=== PATIENT | male | born 1975 | race Caucasian/White ===

== ENCOUNTER 2018-06-27 13:09 | Emergency (ER) | payer OTHER ==
[~2018-06-27] VITALS: Ht 180.3 cm; Wt 90.0 kg
[~2018-06-27 13:09] MED LIST: DIVA500T69 PO; GABA400C PO; QUET200T PO
[2018-06-27] MEDS ORDERED: MIRT15 PO (14:47)
[2018-06-27] MEDS ORDERED: HALO5TAB2 PO (14:47)
[2018-06-27 16:14] LABS: BASOPHILS % (AUTO) 0.3 % (0.0-2.0); EOSINOPHILS % (AUTO) 1.2 % (1.0-6.0); HEMATOCRIT 36.1 % (41-53); HEMOGLOBIN 12.1 g/dL (13.5-17.5); LYMPHOCYTES # (AUTO) 1.7 K/uL (1.0-4.8); LYMPHOCYTES % (AUTO) 19.4 % (22.0-44.0); MEAN CORPUSCULAR HEMOGLOBIN 31.3 pg (26.0-34.0); MEAN CORPUSCULAR HGB CONC 33.4 G/dL (31.0-37.0); MEAN CORPUSCULAR VOLUME 94 fL (80-100); MONOCYTES # (AUTO) 0.8 K/uL (0.1-1.0); MONOCYTES % (AUTO) 9.2 % (2.0-9.0); NEUTROPHILS # (AUTO) 6.1 K/uL (1.8-7.7); NEUTROPHILS % (AUTO) 69.9 % (40.0-70.0); PLATELET COUNT (AUTO) 231 K/uL (150-450); RED BLOOD CELL COUNT(AUTO) 3.85 MIL/uL (4.50-5.90)
[2018-06-27 16:23] LABS: ANION GAP 4 mmol/L (8-16); CALCIUM, TOTAL 8.5 mg/dL (8.8-10.5); CARBON DIOXIDE 29 mmol/L (22-29); CHLORIDE 108 mmol/L (98-107); CREATININE 0.75 mg/dL (0.60-1.30); GLOMERULAR FILTR. RATE CALC > 60 mL/min (>60); GLUCOSE,RANDOM 97 mg/dL (70-110); POTASSIUM 3.9 mmol/L (3.5-5.1); SODIUM SERUM 141 mmol/L (136-145); UREA NITROGEN, BLOOD 8 mg/dL (7-18)
[2018-06-27 16:29] LABS: ALANINE AMINOTRANSFERASE 19 U/L (12-78); ALBUMIN 3.1 g/dL (3.4-5.0); ALKALINE PHOSPHATASE 74 U/L (46-116); ASPARTATE AMINOTRANSFERASE 15 U/L (15-37); BILIRUBIN,TOTAL 0.3 mg/dL (0.1-1.0); TOTAL PROTEIN, SERUM 6.2 g/dL (6.4-8.2)
[2018-06-27 17:10] VITALS: BP 121/71
== END 2018-06-27 17:11 | disposition home or self-care (01) ==
LOC: EMS 13:10
DX: R45.851 Suicidal ideations (principal); F31.9 Bipolar disorder, unspecified; I10 Essential (primary) hypertension; F17.210 Nicotine dependence, cigarettes, uncomplicated; Z88.8 Allergy status to other drugs, medicaments and biological substances; Z59.0 Homelessness
CPT/HCPCS: 36415; 80053; 85025; 99285; G0480

== ENCOUNTER 2018-10-11 13:28 | Inpatient (IN) | payer OTHER, MEDICAID ==
[~2018-10-11] VITALS: Ht 175.3 cm; Wt 91.8 kg
[~2018-10-11 13:28] MED LIST changes: +HALO5TAB2 PO; +MIRT15 PO
[2018-10-11] MEDS ORDERED: CLON2 PO (13:52)
[2018-10-11] MEDS ORDERED: TRAZ-220 PO (13:52)
[2018-10-11] MEDS ORDERED: LORazepam 2 MG TABLET PO ONE (14:00)
[2018-10-11] MEDS ORDERED: HALOPERIDOL 5 MG TABLET PO ONE (14:00)
[2018-10-11] MEDS ORDERED: DiphenhydrAMINE HCL 50 MG/ML VIAL ONE (14:03)
[2018-10-11] MEDS ORDERED: LORazepam 2 MG/ML VIAL ONE (14:03)
[2018-10-11] MEDS ORDERED: HALOPERIDOL LACTATE 5 MG/ML VIAL ONE (14:04)
[2018-10-11] MEDS ORDERED: DiphenhydrAMINE HCL 50 MG/ML VIAL IM ONE (14:05)
[2018-10-11] MEDS ORDERED: LORazepam 2 MG/ML VIAL IM ONE (14:05)
[2018-10-11] MEDS ORDERED: HALOPERIDOL LACTATE 5 MG/ML VIAL IM ONE (14:05)
[2018-10-12] MEDS ORDERED: ZOLPIDEM TARTRATE 10 MG TABLET PO PRN (00:45)
[2018-10-12 06:09] LABS: AMPHET/METH SCREEN,URINE NEGATIVE (NEGATIVE); BARBITURATE SCREEN, URINE NEGATIVE (NEGATIVE); BENZODIAZEPINES SCREEN,URINE NEGATIVE (NEGATIVE); CANNABINOID SCREEN,URINE POSITIVE (NEGATIVE); COCAINE SCREEN,URINE NEGATIVE (NEGATIVE); METHADONE SCREEN, URINE NEGATIVE (NEGATIVE); OPIATE SCREEN,URINE NEGATIVE (NEGATIVE); PHENCYCLIDINE SCREEN,URINE NEGATIVE (NEGATIVE)
[2018-10-12] MEDS ORDERED: NICOTINE 14 MG/24 HOUR PATCH TD ONE (06:45)
[2018-10-12] MEDS: LORazepam 2 MG TABLET PO PRN (09:51)
[2018-10-12] MEDS: HALOPERIDOL 5 MG TABLET PO PRN (11:46)
[2018-10-12] MEDS: NICOTINE 21 MG/24 HOUR PATCH TD SCH (12:19)
[2018-10-12 12:35] VITALS: BP 150/82
[2018-10-12] MEDS ORDERED: TraZODone HCL 50 MG TABLET PO PRN (14:30)
[2018-10-12] MEDS ORDERED: OMEP20 PO (14:52)
[2018-10-12] MEDS ORDERED: CLON1 PO (14:52)
[2018-10-12] MEDS ORDERED: LISI-660 PO (14:52)
[2018-10-12] MEDS ORDERED: DIPH50 PO (14:52)
[2018-10-12] MEDS ORDERED: QUET200T PO (14:52)
[2018-10-12] MEDS ORDERED: TRAZ-219 PO (15:50)
[2018-10-12] MEDS ORDERED: GABA-531 PO (15:50)
[2018-10-12] MEDS: DIVALPROEX SODIUM 500 MG ER TABLET PO SCH (16:56)
[2018-10-12] MEDS: QUEtiapine FUMARATE 200 MG TABLET PO SCH ×2 (16:56→20:10)
[2018-10-12 17:28] VITALS: BP 145/82
[2018-10-13] MEDS: DIVALPROEX SODIUM 500 MG ER TABLET PO SCH ×2 (08:20→16:17)
[2018-10-13] MEDS: NICOTINE 21 MG/24 HOUR PATCH TD SCH (08:22)
[2018-10-13] MEDS: HALOPERIDOL 5 MG TABLET PO PRN (08:34)
[2018-10-13] MEDS: LORazepam 2 MG TABLET PO PRN (08:34)
[2018-10-13 09:00] VITALS: BP 119/75
[2018-10-13] MEDS: QUEtiapine FUMARATE 200 MG TABLET PO SCH ×2 (16:17→20:20)
[2018-10-13] MEDS ORDERED: DiphenhydrAMINE HCL 50 MG/ML VIAL IM ONE (16:30)
[2018-10-13] MEDS ORDERED: LORazepam 2 MG/ML VIAL IM ONE (16:30)
[2018-10-13] MEDS ORDERED: HALOPERIDOL LACTATE 5 MG/ML VIAL IM ONE (16:30)
[2018-10-13 17:15] VITALS: BP 136/80
[2018-10-13] MEDS ORDERED: BENZOCAINE/MENTHOL LOZENGE MM PRN (19:30)
[2018-10-13] MEDS ORDERED: MAGNESIUM HYDROXIDE SUSPENSION 30 ML UDCUP PO PRN (19:30)
[2018-10-13] MEDS ORDERED: IBUPROFEN 600 MG TABLET PO PRN (19:30)
[2018-10-13] MEDS ORDERED: ACETAMINOPHEN 325 MG TABLET PO PRN (19:30)
[2018-10-13] MEDS ORDERED: PETROLATUM,WHITE 71 GM JELLY TP PRN (19:30)
[2018-10-13] MEDS ORDERED: BACITRACIN 28.4 GM OINTMENT TP PRN (19:30)
[2018-10-13] MEDS ORDERED: CloNIDine HCL 0.1 MG TABLET PO PRN (19:30)
[2018-10-13] MEDS ORDERED: ONDANSETRON HCL 4 MG TABLET PO PRN (19:30)
[2018-10-13] MEDS ORDERED: ALBUTEROL SULFATE HFA 90 MCG/PUFF 8 GM INHALER IH PRN (19:30)
[2018-10-13] MEDS ORDERED: MAG HYDROX/AL HYDROX/SIMETH ES 30 ML SUSPENSION UDCUP PO PRN (19:30)
[2018-10-13] MEDS ORDERED: LOPERAMIDE HCL 2 MG CAPSULE PO PRN (19:30)
[2018-10-14] MEDS: OMEPRAZOLE 20 MG CAPSULE PO SCH (07:32)
[2018-10-14] MEDS: DOCUSATE SODIUM 100 MG CAPSULE PO SCH (07:32)
[2018-10-14] MEDS: DIVALPROEX SODIUM 500 MG ER TABLET PO SCH ×2 (07:32→16:41)
[2018-10-14] MEDS: HALOPERIDOL 5 MG TABLET PO PRN (07:32)
[2018-10-14] MEDS: LORazepam 2 MG TABLET PO PRN ×2 (07:32→14:12)
[2018-10-14] MEDS: LISINOPRIL 5 MG TABLET PO SCH (07:33)
[2018-10-14] MEDS: NICOTINE 21 MG/24 HOUR PATCH TD SCH (07:33)
[2018-10-14 09:00] VITALS: BP 130/75
[2018-10-14] MEDS: QUEtiapine FUMARATE 200 MG TABLET PO SCH ×2 (16:41→20:52)
[2018-10-14 18:41] VITALS: BP 137/79
[2018-10-15 00:01] VITALS: BP 118/73
[2018-10-15] MEDS: LORazepam 2 MG TABLET PO PRN ×2 (00:04→08:22)
[2018-10-15 08:21] VITALS: BP 148/82
[2018-10-15] MEDS: DIVALPROEX SODIUM 500 MG ER TABLET PO SCH (08:22)
[2018-10-15] MEDS: OMEPRAZOLE 20 MG CAPSULE PO SCH (08:22)
[2018-10-15] MEDS: DOCUSATE SODIUM 100 MG CAPSULE PO SCH (08:22)
[2018-10-15] MEDS: LISINOPRIL 5 MG TABLET PO SCH (08:22)
[2018-10-15] MEDS ORDERED: DSS100 PO (09:03)
[2018-10-15] MEDS: NICOTINE 21 MG/24 HOUR PATCH TD SCH (09:13)
== END 2018-10-15 11:45 | disposition home or self-care (01) | DRG 885 ==
LOC: EMS 13:29 → 3EC 10-12 11:42
PROVIDERS: ADMIT Psychiatry & Neurology Psychiatry; ATTEND Psychiatry & Neurology Psychiatry
DX: F33.2 Major depressive disorder, recurrent severe without psychotic features (principal); R45.851 Suicidal ideations; F84.0 Autistic disorder; I10 Essential (primary) hypertension; F17.210 Nicotine dependence, cigarettes, uncomplicated; Z59.0 Homelessness; Z78.1 Physical restraint status; K59.00 Constipation, unspecified; G47.00 Insomnia, unspecified; F41.9 Anxiety disorder, unspecified; F12.90 Cannabis use, unspecified, uncomplicated; Z71.6 Tobacco abuse counseling; Z71.51 Drug abuse counseling and surveillance of drug abuser
CPT/HCPCS: 96372; J1200; J1630; J2060

== ENCOUNTER 2018-10-16 23:21 | Emergency (ER) | payer OTHER ==
[~2018-10-16] VITALS: Ht 190.5 cm; Wt 95.5 kg
[~2018-10-16 23:21] MED LIST changes: +DSS100 PO; -GABA400C PO; -HALO5TAB2 PO; +LISI-660 PO; -MIRT15 PO; +OMEP20 PO
[2018-10-17 05:56] VITALS: BP 135/79
== END 2018-10-17 06:12 | disposition home or self-care (01) ==
LOC: EMS 23:22
DX: F31.9 Bipolar disorder, unspecified (principal); I10 Essential (primary) hypertension; F84.0 Autistic disorder; F17.210 Nicotine dependence, cigarettes, uncomplicated; Z59.0 Homelessness; Z79.899 Other long term (current) drug therapy; Z91.041 Radiographic dye allergy status
CPT/HCPCS: 99406

== ENCOUNTER 2018-10-17 20:17 | Emergency (ER) | payer OTHER ==
[~2018-10-17] VITALS: Ht 190.5 cm; Wt 95.5 kg
[2018-10-17 22:40] VITALS: BP 127/76
== END 2018-10-17 22:55 | disposition left against medical advice (07) ==
LOC: EMS 20:18
DX: R45.851 Suicidal ideations (principal); Z53.21 Procedure and treatment not carried out due to patient leaving prior to being seen by health care provider

== ENCOUNTER 2018-10-20 07:56 | Inpatient (IN) | payer OTHER, MEDICAID ==
[~2018-10-20] VITALS: Ht 190.5 cm; Wt 93.6 kg
[~2018-10-20 07:56] MED LIST changes: -LISI-660 PO
[2018-10-20 08:28] LABS: BASOPHILS % (AUTO) 0.3 % (0.0-2.0); EOSINOPHILS % (AUTO) 0.6 % (1.0-6.0); HEMATOCRIT 41.6 % (41-53); HEMOGLOBIN 13.9 g/dL (13.5-17.5); LYMPHOCYTES # (AUTO) 1.9 K/uL (1.0-4.8); LYMPHOCYTES % (AUTO) 15.7 % (22.0-44.0); MEAN CORPUSCULAR HEMOGLOBIN 29.3 pg (26.0-34.0); MEAN CORPUSCULAR HGB CONC 33.3 G/dL (31.0-37.0); MEAN CORPUSCULAR VOLUME 88 fL (80-100); MONOCYTES # (AUTO) 0.6 K/uL (0.1-1.0); NEUTROPHILS # (AUTO) 9.7 K/uL (1.8-7.7); NEUTROPHILS % (AUTO) 78.4 % (40.0-70.0); PLATELET COUNT (AUTO) 327 K/uL (150-450); RED BLOOD CELL COUNT(AUTO) 4.73 MIL/uL (4.50-5.90); RED CELL DISTRIBUTION WIDTH 16.2 % (11.5-14.5)
[2018-10-20] MEDS ORDERED: RISP2 PO (08:29)
[2018-10-20] MEDS ORDERED: HYDR-4031 PO (08:29)
[2018-10-20 08:39] LABS: ANION GAP 6 mmol/L (8-16); CARBON DIOXIDE 27 mmol/L (22-29); CHLORIDE 102 mmol/L (98-107); CREATININE 0.89 mg/dL (0.60-1.30); GLOMERULAR FILTR. RATE CALC > 60 mL/min (>60); GLUCOSE,RANDOM 107 mg/dL (70-110); SODIUM SERUM 135 mmol/L (136-145); UREA NITROGEN, BLOOD 15 mg/dL (7-18)
[2018-10-20 08:44] LABS: ALANINE AMINOTRANSFERASE 26 U/L (12-78); ALBUMIN 3.9 g/dL (3.4-5.0); ALKALINE PHOSPHATASE 82 U/L (46-116); ASPARTATE AMINOTRANSFERASE 20 U/L (15-37); BILIRUBIN,TOTAL 0.2 mg/dL (0.1-1.0); TOTAL PROTEIN, SERUM 7.5 g/dL (6.4-8.2)
[2018-10-20 08:46] LABS: VALPROIC ACID < 3 mcg/mL (50-100)
[2018-10-20 08:56] LABS: AMPHET/METH SCREEN,URINE NEGATIVE (NEGATIVE); BARBITURATE SCREEN, URINE NEGATIVE (NEGATIVE); BENZODIAZEPINES SCREEN,URINE NEGATIVE (NEGATIVE); CANNABINOID SCREEN,URINE POSITIVE (NEGATIVE); COCAINE SCREEN,URINE NEGATIVE (NEGATIVE); METHADONE SCREEN, URINE NEGATIVE (NEGATIVE); OPIATE SCREEN,URINE NEGATIVE (NEGATIVE)
[2018-10-20 08:57] LABS: PHENCYCLIDINE SCREEN,URINE NEGATIVE (NEGATIVE)
[2018-10-20] MEDS ORDERED: HALOPERIDOL 5 MG TABLET PO ONE (09:45)
[2018-10-20] MEDS ORDERED: LORazepam 2 MG TABLET PO ONE (09:45)
[2018-10-20] MEDS ORDERED: ZOLPIDEM TARTRATE 10 MG TABLET PO PRN (10:00)
[2018-10-20 12:17] VITALS: BP 142/90
[2018-10-20] MEDS: DIVALPROEX SODIUM 500 MG ER TABLET PO SCH (16:22)
[2018-10-20 18:03] VITALS: BP 139/84
[2018-10-20] MEDS: NICOTINE 21 MG/24 HOUR PATCH TD SCH (20:30)
[2018-10-20] MEDS ORDERED: QUEtiapine FUMARATE 200 MG TABLET PO SCH (21:00)
[2018-10-21] MEDS ORDERED: MAGNESIUM HYDROXIDE SUSPENSION 30 ML UDCUP PO PRN (02:30)
[2018-10-21] MEDS ORDERED: BACITRACIN 28.4 GM OINTMENT TP PRN (02:30)
[2018-10-21] MEDS ORDERED: CloNIDine HCL 0.1 MG TABLET PO PRN (02:30)
[2018-10-21] MEDS ORDERED: BENZOCAINE/MENTHOL LOZENGE MM PRN (02:30)
[2018-10-21] MEDS ORDERED: ALBUTEROL SULFATE HFA 90 MCG/PUFF 8 GM INHALER IH PRN (02:30)
[2018-10-21] MEDS ORDERED: LOPERAMIDE HCL 2 MG CAPSULE PO PRN (02:30)
[2018-10-21] MEDS ORDERED: MAG HYDROX/AL HYDROX/SIMETH ES 30 ML SUSPENSION UDCUP PO PRN (02:30)
[2018-10-21] MEDS ORDERED: ACETAMINOPHEN 325 MG TABLET PO PRN (02:30)
[2018-10-21] MEDS ORDERED: PETROLATUM,WHITE 71 GM JELLY TP PRN (02:30)
[2018-10-21] MEDS ORDERED: ONDANSETRON HCL 4 MG TABLET PO PRN (02:30)
[2018-10-21 02:44] VITALS: BP 140/80
[2018-10-21] MEDS: IBUPROFEN 600 MG TABLET PO PRN (02:45)
[2018-10-21] MEDS: DIVALPROEX SODIUM 500 MG ER TABLET PO SCH ×2 (08:04→17:00)
[2018-10-21] MEDS: DOCUSATE SODIUM 100 MG CAPSULE PO SCH (08:04)
[2018-10-21] MEDS: NICOTINE 21 MG/24 HOUR PATCH TD SCH (08:05)
[2018-10-21] MEDS: OMEPRAZOLE 20 MG CAPSULE PO SCH (08:05)
[2018-10-21] MEDS: HALOPERIDOL 5 MG TABLET PO PRN (08:05)
[2018-10-21] MEDS: LORazepam 2 MG TABLET PO PRN ×2 (08:05→19:04)
[2018-10-21 09:11] VITALS: BP 126/74
[2018-10-21] MEDS ORDERED: PNEUMOCOCCAL VACCINE POLYVALENT 0.5 ML VIAL [PPSV23] IM ONE (11:00)
[2018-10-21] MEDS: QUEtiapine FUMARATE 200 MG TABLET PO SCH ×2 (12:45→20:42)
[2018-10-21 16:00] VITALS: BP 120/70
[2018-10-22 08:00] VITALS: BP 137/76
[2018-10-22] MEDS: DIVALPROEX SODIUM 500 MG ER TABLET PO SCH ×2 (08:04→17:26)
[2018-10-22] MEDS: QUEtiapine FUMARATE 200 MG TABLET PO SCH ×2 (08:04→21:00)
[2018-10-22] MEDS: DOCUSATE SODIUM 100 MG CAPSULE PO SCH (08:04)
[2018-10-22] MEDS: NICOTINE 21 MG/24 HOUR PATCH TD SCH (08:05)
[2018-10-22] MEDS: OMEPRAZOLE 20 MG CAPSULE PO SCH (08:05)
[2018-10-22] MEDS: LORazepam 2 MG TABLET PO PRN ×2 (08:10→12:21)
[2018-10-22 09:47] LABS: HEMATOCRIT 39.6 % (41-53); HEMOGLOBIN 13.2 g/dL (13.5-17.5); MEAN CORPUSCULAR HEMOGLOBIN 29.1 pg (26.0-34.0); MEAN CORPUSCULAR HGB CONC 33.2 G/dL (31.0-37.0); MEAN CORPUSCULAR VOLUME 88 fL (80-100); PLATELET COUNT (AUTO) 304 K/uL (150-450); RED BLOOD CELL COUNT(AUTO) 4.52 MIL/uL (4.50-5.90); RED CELL DISTRIBUTION WIDTH 16.5 % (11.5-14.5)
[2018-10-22 10:05] LABS: ANION GAP 10 mmol/L (8-16); CALCIUM, TOTAL 8.7 mg/dL (8.8-10.5); CARBON DIOXIDE 25 mmol/L (22-29); CHLORIDE 104 mmol/L (98-107); CREATININE 0.85 mg/dL (0.60-1.30); GLOMERULAR FILTR. RATE CALC > 60 mL/min (>60); GLUCOSE,RANDOM 125 mg/dL (70-110); PHOSPHORUS 3.4 mg/dL (2.5-4.9); POTASSIUM 4.6 mmol/L (3.5-5.1); SODIUM SERUM 139 mmol/L (136-145); UREA NITROGEN, BLOOD 18 mg/dL (7-18)
[2018-10-22 10:12] LABS: BAND NEUTROPHILS % (MANUAL) 1 % (0-5); EOSINOPHILS % (MANUAL) 3 % (1-6); LYMPHOCYTES % (MANUAL) 22 % (22-44); MONOCYTES % (MANUAL) 3 % (2-9); SEGMENTED NEUTROPHILS % 71 % (40-70)
[2018-10-22] MEDS: HALOPERIDOL 5 MG TABLET PO PRN (14:41)
[2018-10-22] MEDS ORDERED: DiphenhydrAMINE HCL 50 MG/ML VIAL IM ONE (15:15)
[2018-10-22] MEDS ORDERED: LORazepam 2 MG/ML VIAL IM ONE (15:15)
[2018-10-22] MEDS ORDERED: HALOPERIDOL LACTATE 5 MG/ML VIAL IM ONE (15:15)
[2018-10-23] MEDS: LORazepam 2 MG TABLET PO PRN ×3 (05:26→16:30)
[2018-10-23 05:59] VITALS: BP 133/78
[2018-10-23] MEDS: MAGNESIUM OXIDE 400 MG TABLET PO SCH ×2 (07:56→16:30)
[2018-10-23] MEDS: DOCUSATE SODIUM 100 MG CAPSULE PO SCH (07:56)
[2018-10-23] MEDS: DIVALPROEX SODIUM 500 MG ER TABLET PO SCH ×2 (07:56→16:30)
[2018-10-23] MEDS: QUEtiapine FUMARATE 200 MG TABLET PO SCH ×2 (07:56→20:41)
[2018-10-23] MEDS: OMEPRAZOLE 20 MG CAPSULE PO SCH (07:56)
[2018-10-23] MEDS: HALOPERIDOL 5 MG TABLET PO PRN ×3 (07:56→16:30)
[2018-10-23] MEDS: NICOTINE 21 MG/24 HOUR PATCH TD SCH (08:01)
[2018-10-23] MEDS: GuaiFENesin SR 600 MG ER TABLET PO SCH ×2 (08:03→09:00)
[2018-10-23] MEDS: IBUPROFEN 600 MG TABLET PO PRN (12:22)
[2018-10-24] MEDS: LORazepam 2 MG TABLET PO PRN ×2 (03:41→08:19)
[2018-10-24] MEDS: HALOPERIDOL 5 MG TABLET PO PRN ×2 (03:41→08:19)
[2018-10-24] MEDS: OMEPRAZOLE 20 MG CAPSULE PO SCH (08:18)
[2018-10-24] MEDS: DIVALPROEX SODIUM 500 MG ER TABLET PO SCH (08:18)
[2018-10-24] MEDS: MAGNESIUM OXIDE 400 MG TABLET PO SCH (08:18)
[2018-10-24] MEDS: DOCUSATE SODIUM 100 MG CAPSULE PO SCH (08:18)
[2018-10-24] MEDS: GuaiFENesin SR 600 MG ER TABLET PO SCH (08:18)
[2018-10-24] MEDS: NICOTINE 21 MG/24 HOUR PATCH TD SCH (08:18)
[2018-10-24] MEDS: QUEtiapine FUMARATE 200 MG TABLET PO SCH (08:18)
[2018-10-24] MEDS ORDERED: GUAIF600 PO (15:45)
[2018-10-24] MEDS ORDERED: MAGOX PO (15:45)
== END 2018-10-24 11:30 | disposition home or self-care (01) | DRG 885 ==
LOC: EMS 07:57 → 3EC 10:46
DX: F25.1 Schizoaffective disorder, depressive type (principal); R45.851 Suicidal ideations; D72.829 Elevated white blood cell count, unspecified; F12.10 Cannabis abuse, uncomplicated; F17.210 Nicotine dependence, cigarettes, uncomplicated; F41.9 Anxiety disorder, unspecified; E83.42 Hypomagnesemia; F84.0 Autistic disorder; G47.00 Insomnia, unspecified; I10 Essential (primary) hypertension; K59.00 Constipation, unspecified; Z59.0 Homelessness; Z79.899 Other long term (current) drug therapy; Z28.21 Immunization not carried out because of patient refusal; Z91.041 Radiographic dye allergy status; Z71.6 Tobacco abuse counseling; Z71.51 Drug abuse counseling and surveillance of drug abuser; Z88.0 Allergy status to penicillin
CPT/HCPCS: 83735; 84100; 85007; 90686; 90732; G0480; J1200; J1630; J2060

== ENCOUNTER 2018-10-27 19:03 | Inpatient (IN) | payer OTHER, MEDICAID ==
[~2018-10-27] VITALS: Ht 190.5 cm; Wt 99.8 kg
[~2018-10-27 19:03] MED LIST changes: +GUAIF600 PO; +MAGOX PO
[2018-10-27] MEDS ORDERED: NICOTINE 21 MG/24 HOUR PATCH TD ONE (19:45)
[2018-10-27] MEDS ORDERED: NICOTINE 7 MG/24 HOUR PATCH TD ONE (19:45)
[2018-10-27 20:07] LABS: BASOPHILS % (AUTO) 0.9 % (0.0-2.0); EOSINOPHILS % (AUTO) 0.7 % (1.0-6.0); HEMATOCRIT 37.9 % (41-53); HEMOGLOBIN 12.1 g/dL (13.5-17.5); LYMPHOCYTES # (AUTO) 2.6 K/uL (1.0-4.8); LYMPHOCYTES % (AUTO) 15.4 % (22.0-44.0); MEAN CORPUSCULAR HEMOGLOBIN 28.3 pg (26.0-34.0); MEAN CORPUSCULAR HGB CONC 31.9 G/dL (31.0-37.0); MEAN CORPUSCULAR VOLUME 89 fL (80-100); MONOCYTES # (AUTO) 1.4 K/uL (0.1-1.0); MONOCYTES % (AUTO) 8.2 % (2.0-9.0); NEUTROPHILS # (AUTO) 12.5 K/uL (1.8-7.7); NEUTROPHILS % (AUTO) 74.8 % (40.0-70.0); PLATELET COUNT (AUTO) 306 K/uL (150-450); RED BLOOD CELL COUNT(AUTO) 4.26 MIL/uL (4.50-5.90); RED CELL DISTRIBUTION WIDTH 16.5 % (11.5-14.5)
[2018-10-27 20:17] LABS: ANION GAP 12 mmol/L (8-16); CARBON DIOXIDE 26 mmol/L (22-29); CHLORIDE 103 mmol/L (98-107); CREATININE 1.08 mg/dL (0.60-1.30); GLOMERULAR FILTR. RATE CALC > 60 mL/min (>60); GLUCOSE,RANDOM 84 mg/dL (70-110); SODIUM SERUM 141 mmol/L (136-145); UREA NITROGEN, BLOOD 20 mg/dL (7-18)
[2018-10-27 20:23] LABS: ALANINE AMINOTRANSFERASE 20 U/L (12-78); ALBUMIN 3.4 g/dL (3.4-5.0); ALKALINE PHOSPHATASE 70 U/L (46-116); ASPARTATE AMINOTRANSFERASE 16 U/L (15-37); BILIRUBIN,TOTAL 0.2 mg/dL (0.1-1.0); TOTAL PROTEIN, SERUM 6.6 g/dL (6.4-8.2)
[2018-10-28 00:03] VITALS: BP 131/78
[2018-10-28] MEDS ORDERED: PNEUMOCOCCAL VACCINE POLYVALENT 0.5 ML VIAL [PPSV23] IM ONE (04:45)
[2018-10-28] MEDS ORDERED: ACETAMINOPHEN 325 MG TABLET PO PRN (09:15)
[2018-10-28] MEDS ORDERED: MAGNESIUM HYDROXIDE SUSPENSION 30 ML UDCUP PO PRN (09:15)
[2018-10-28] MEDS ORDERED: CloNIDine HCL 0.1 MG TABLET PO PRN (09:15)
[2018-10-28] MEDS ORDERED: MAG HYDROX/AL HYDROX/SIMETH ES 30 ML SUSPENSION UDCUP PO PRN (09:15)
[2018-10-28] MEDS ORDERED: PETROLATUM,WHITE 71 GM JELLY TP PRN (09:15)
[2018-10-28] MEDS ORDERED: BENZOCAINE/MENTHOL LOZENGE MM PRN (09:15)
[2018-10-28] MEDS ORDERED: ONDANSETRON HCL 4 MG TABLET PO PRN (09:15)
[2018-10-28] MEDS ORDERED: BACITRACIN 28.4 GM OINTMENT TP PRN (09:15)
[2018-10-28] MEDS ORDERED: ALBUTEROL SULFATE HFA 90 MCG/PUFF 8 GM INHALER IH PRN (09:15)
[2018-10-28] MEDS: DIVALPROEX SODIUM 500 MG ER TABLET PO SCH ×2 (11:04→16:54)
[2018-10-28] MEDS: QUEtiapine FUMARATE 200 MG TABLET PO SCH ×2 (11:04→20:28)
[2018-10-28] MEDS: HALOPERIDOL 5 MG TABLET PO PRN ×2 (11:18→16:54)
[2018-10-28] MEDS: LORazepam 2 MG TABLET PO PRN ×2 (11:18→16:54)
[2018-10-28 16:27] VITALS: BP 112/65
[2018-10-28] MEDS: ZOLPIDEM TARTRATE 10 MG TABLET PO PRN (20:28)
[2018-10-29 06:46] VITALS: BP 108/73
[2018-10-29 08:45] VITALS: BP 110/67
[2018-10-29] MEDS: QUEtiapine FUMARATE 200 MG TABLET PO SCH ×2 (08:57→21:00)
[2018-10-29] MEDS: LORazepam 2 MG TABLET PO PRN ×2 (08:57→20:50)
[2018-10-29] MEDS: DIVALPROEX SODIUM 500 MG ER TABLET PO SCH ×2 (08:57→16:39)
[2018-10-29] MEDS: DOCUSATE SODIUM 100 MG CAPSULE PO SCH (08:57)
[2018-10-29] MEDS: OMEPRAZOLE 20 MG CAPSULE PO SCH (08:57)
[2018-10-29] MEDS ORDERED: NICOTINE 14 MG/24 HOUR PATCH TD SCH (09:00)
[2018-10-29] MEDS: NICOTINE 21 MG/24 HOUR PATCH TD SCH (09:06)
[2018-10-29] MEDS ORDERED: NICOTINE 21 MG/24 HOUR PATCH TD SCH (12:30)
[2018-10-29 12:50] VITALS: BP 112/62
[2018-10-29] MEDS: IBUPROFEN 600 MG TABLET PO PRN (12:51)
[2018-10-29 13:51] VITALS: BP 114/64
[2018-10-29 16:19] VITALS: BP 119/60
[2018-10-29] MEDS: DIVALPROEX SODIUM 500 MG DR TABLET PO SCH (21:00)
[2018-10-29] MEDS: ZOLPIDEM TARTRATE 10 MG TABLET PO PRN (22:08)
[2018-10-30 06:06] VITALS: BP 130/77
[2018-10-30] MEDS: IBUPROFEN 600 MG TABLET PO PRN (06:32)
[2018-10-30 07:35] VITALS: BP 128/68
[2018-10-30] MEDS: DOCUSATE SODIUM 100 MG CAPSULE PO SCH (08:47)
[2018-10-30] MEDS: LORazepam 2 MG TABLET PO PRN ×3 (08:47→21:42)
[2018-10-30] MEDS: DIVALPROEX SODIUM 500 MG DR TABLET PO SCH ×2 (08:47→20:27)
[2018-10-30] MEDS: OMEPRAZOLE 20 MG CAPSULE PO SCH (08:47)
[2018-10-30] MEDS: QUEtiapine FUMARATE 200 MG TABLET PO SCH ×2 (08:47→20:27)
[2018-10-30 08:48] VITALS: BP 109/67
[2018-10-30] MEDS: NICOTINE 21 MG/24 HOUR PATCH TD SCH (08:48)
[2018-10-30] MEDS: HALOPERIDOL 5 MG TABLET PO PRN (13:10)
[2018-10-30] MEDS: LOPERAMIDE HCL 2 MG CAPSULE PO PRN (15:50)
[2018-10-30 16:00] VITALS: BP 117/75
[2018-10-31 05:58] VITALS: BP 126/82
[2018-10-31 08:26] VITALS: BP 136/77
[2018-10-31] MEDS: LOPERAMIDE HCL 2 MG CAPSULE PO PRN (08:34)
[2018-10-31] MEDS: HALOPERIDOL 5 MG TABLET PO PRN (08:34)
[2018-10-31] MEDS: LORazepam 2 MG TABLET PO PRN (08:34)
[2018-10-31] MEDS: NICOTINE 21 MG/24 HOUR PATCH TD SCH (08:34)
[2018-10-31] MEDS: DIVALPROEX SODIUM 500 MG DR TABLET PO SCH (08:35)
[2018-10-31] MEDS: DOCUSATE SODIUM 100 MG CAPSULE PO SCH (08:35)
[2018-10-31] MEDS: OMEPRAZOLE 20 MG CAPSULE PO SCH (08:35)
[2018-10-31] MEDS: QUEtiapine FUMARATE 200 MG TABLET PO SCH (08:35)
[2018-10-31] MEDS ORDERED: QUET200T29 PO (14:11)
[2018-10-31] MEDS ORDERED: DIVA-78 PO (14:11)
== END 2018-10-31 15:40 | disposition home or self-care (01) | DRG 885 ==
LOC: EMS 19:03 → B3A 20:00
PROC: 3E02340 Introduction of Influenza Vaccine into Muscle, Percutaneous Approach (ICD-10-PCS; principal; 2018-10-29)
PROC: 3E0234Z Introduction of Serum, Toxoid and Vaccine into Muscle, Percutaneous Approach (ICD-10-PCS; 2018-10-29)
DX: F25.1 Schizoaffective disorder, depressive type (principal); R45.851 Suicidal ideations; D72.829 Elevated white blood cell count, unspecified; F12.90 Cannabis use, unspecified, uncomplicated; F84.0 Autistic disorder; K59.00 Constipation, unspecified; G47.00 Insomnia, unspecified; I10 Essential (primary) hypertension; F17.200 Nicotine dependence, unspecified, uncomplicated; F41.9 Anxiety disorder, unspecified; Z71.51 Drug abuse counseling and surveillance of drug abuser; Z88.0 Allergy status to penicillin; F91.9 Conduct disorder, unspecified; Z79.899 Other long term (current) drug therapy; Z71.6 Tobacco abuse counseling; Z91.041 Radiographic dye allergy status; Z23 Encounter for immunization
CPT/HCPCS: 87081; 90686; 90732; G0480

== ENCOUNTER 2023-09-15 18:33 | Inpatient (IN) | payer MEDICARE, MEDICAID ==
[~2023-09-15] VITALS: Ht 185.4 cm; Wt 96.7 kg
[~2023-09-15 18:33] MED LIST changes: +DIVA-112 PO; -GUAIF600 PO; -MAGOX PO; +QUET200T30 PO
[2023-09-15] MEDS ORDERED: DOCU-385 PO (20:13)
[2023-09-15] MEDS ORDERED: LORazepam 2 MG/ML VIAL IM ONE (20:15)
[2023-09-15] MEDS ORDERED: DiphenhydrAMINE HCL 50 MG/ML VIAL IM ONE (20:15)
[2023-09-15] MEDS ORDERED: HALOPERIDOL LACTATE 5 MG/ML VIAL IM ONE (20:15)
[2023-09-15] MEDS ORDERED: HALOPERIDOL 5 MG TABLET ONE (20:26)
[2023-09-15] MEDS ORDERED: LORazepam 2 MG TABLET ONE (20:26)
[2023-09-15] MEDS ORDERED: DiphenhydrAMINE HCL 50 MG CAPSULE ONE (20:26)
[2023-09-15] MEDS ORDERED: LORazepam 2 MG TABLET PO ONE (20:45)
[2023-09-15] MEDS ORDERED: HALOPERIDOL 5 MG TABLET PO ONE (20:45)
[2023-09-15] MEDS ORDERED: DiphenhydrAMINE HCL 25 MG CAPSULE PO ONE (20:45)
[2023-09-15] MEDS ORDERED: DiphenhydrAMINE HCL 50 MG CAPSULE PO ONE (20:45)
[2023-09-15 21:17] LABS: COVID AG,FIA SOURCE NASAL SWAB
[2023-09-15 22:27] LABS: SARS-COV2 (COVID) ANTIGEN,FIA Negative (Negative)
[2023-09-16 00:44] VITALS: RESP 18
[2023-09-16] MEDS ORDERED: INFLUENZA VIRUS VACCINE QVS 2023-24 (6MO+)/PF 60 MCG/0.5 ML SYRINGE IM. ONE (02:30)
[2023-09-16] MEDS: HALOPERIDOL 5 MG TABLET PO PRN ×3 (08:47→22:56)
[2023-09-16] MEDS: LORazepam 2 MG TABLET PO PRN ×3 (08:47→22:56)
[2023-09-16 09:12] VITALS: RESP 17
[2023-09-16] MEDS ORDERED: LOPERAMIDE HCL 2 MG CAPSULE PO PRN (09:45)
[2023-09-16] MEDS ORDERED: MAG HYDROX/ALUMINUM HYD/SIMETH ES 30 ML SUSPENSION UDCUP PO PRN (09:45)
[2023-09-16] MEDS ORDERED: CloNIDine HCL 0.1 MG TABLET PO PRN (09:45)
[2023-09-16] MEDS ORDERED: BENZOCAINE/MENTHOL LOZENGE PO PRN (09:45)
[2023-09-16] MEDS ORDERED: ALBUTEROL SULFATE HFA 90 MCG/PUFF 8 GM INHALER IH PRN (09:45)
[2023-09-16] MEDS ORDERED: MAGNESIUM HYDROXIDE SUSPENSION 30 ML UDCUP PO PRN (09:45)
[2023-09-16] MEDS ORDERED: DOCUSATE SODIUM 100 MG CAPSULE PO PRN (09:45)
[2023-09-16] MEDS ORDERED: ONDANSETRON HCL 4 MG TABLET PO PRN (09:45)
[2023-09-16] MEDS ORDERED: ACETAMINOPHEN 325 MG TABLET PO PRN (09:45)
[2023-09-16] MEDS ORDERED: BACITRACIN 28 GM OINTMENT TP PRN (09:45)
[2023-09-16] MEDS ORDERED: PETROLATUM,WHITE 28 GM JELLY TP PRN (09:45)
[2023-09-16] MEDS ORDERED: OMEPRAZOLE 20 MG CAPSULE PO PRN (09:45)
[2023-09-16] MEDS: NICOTINE 21 MG/24 HOUR PATCH TD SCH (09:47)
[2023-09-16] MEDS: IBUPROFEN 600 MG TABLET PO PRN (12:09)
[2023-09-16 20:15] VITALS: RESP 18
[2023-09-17] VITALS (9 sets, daily range): BP systolic 128–130; BP diastolic 84–90; PULSE 82–96; RESP 17–19; TEMP 97.3–98.2; O2SAT 98
[2023-09-17] MEDS: ZOLPIDEM TARTRATE 10 MG TABLET PO PRN ×2 (00:15→22:03)
[2023-09-17] MEDS: IBUPROFEN 600 MG TABLET PO PRN (04:36)
[2023-09-17] MEDS: HALOPERIDOL 5 MG TABLET PO PRN ×3 (05:03→13:18)
[2023-09-17] MEDS: LORazepam 2 MG TABLET PO PRN ×4 (05:03→20:54)
[2023-09-17] MEDS: DIVALPROEX SODIUM 500 MG DR TABLET PO SCH ×2 (08:35→21:20)
[2023-09-17] MEDS: NICOTINE 21 MG/24 HOUR PATCH TD SCH (08:35)
[2023-09-17] MEDS: QUEtiapine FUMARATE 200 MG TABLET PO SCH ×2 (08:35→21:20)
[2023-09-17] MEDS ORDERED: LORazepam 2 MG/ML VIAL ONE (17:27)
[2023-09-17] MEDS ORDERED: HALOPERIDOL LACTATE 5 MG/ML VIAL ONE (17:27)
[2023-09-17] MEDS ORDERED: DiphenhydrAMINE HCL 50 MG/ML VIAL ONE (17:28)
[2023-09-17] MEDS ORDERED: HALOPERIDOL LACTATE 5 MG/ML VIAL IM ONE (17:30)
[2023-09-17] MEDS ORDERED: LORazepam 2 MG/ML VIAL IM ONE (17:30)
[2023-09-17] MEDS ORDERED: DiphenhydrAMINE HCL 50 MG/ML VIAL IM ONE (17:30)
[2023-09-18] MEDS: HALOPERIDOL 5 MG TABLET PO PRN ×3 (04:36→15:09)
[2023-09-18 04:37] VITALS: RESP 18
[2023-09-18] MEDS: LORazepam 2 MG TABLET PO PRN ×3 (04:37→15:09)
[2023-09-18] MEDS: IBUPROFEN 600 MG TABLET PO PRN ×2 (04:37→15:10)
[2023-09-18 05:37] VITALS: RESP 18
[2023-09-18] MEDS: QUEtiapine FUMARATE 200 MG TABLET PO SCH ×2 (07:49→21:09)
[2023-09-18] MEDS: DIVALPROEX SODIUM 500 MG DR TABLET PO SCH ×2 (07:49→21:09)
[2023-09-18] MEDS: NICOTINE 21 MG/24 HOUR PATCH TD SCH (07:54)
[2023-09-18 08:20] VITALS: RESP 17
[2023-09-18] MEDS ORDERED: DiphenhydrAMINE HCL 50 MG/ML VIAL ONE (16:57)
[2023-09-18] MEDS ORDERED: LORazepam 2 MG/ML VIAL ONE (16:57)
[2023-09-18] MEDS ORDERED: HALOPERIDOL LACTATE 5 MG/ML VIAL ONE (16:57)
[2023-09-18] MEDS ORDERED: DiphenhydrAMINE HCL 50 MG/ML VIAL IM ONE (17:15)
[2023-09-18] MEDS ORDERED: LORazepam 2 MG/ML VIAL IM ONE (17:15)
[2023-09-18] MEDS ORDERED: HALOPERIDOL LACTATE 5 MG/ML VIAL IM ONE (17:15)
[2023-09-18 20:34] VITALS: RESP 18
[2023-09-19] MEDS: ZOLPIDEM TARTRATE 10 MG TABLET PO PRN ×2 (01:18→23:14)
[2023-09-19] MEDS: LORazepam 2 MG TABLET PO PRN ×4 (01:18→20:20)
[2023-09-19] MEDS: HALOPERIDOL 5 MG TABLET PO PRN ×4 (01:18→23:14)
[2023-09-19] MEDS: DIVALPROEX SODIUM 500 MG DR TABLET PO SCH ×2 (08:05→21:06)
[2023-09-19] MEDS: QUEtiapine FUMARATE 200 MG TABLET PO SCH ×2 (08:06→21:06)
[2023-09-19] MEDS: NICOTINE 21 MG/24 HOUR PATCH TD SCH (09:37)
[2023-09-19 09:58] VITALS: BP 112/73; PULSE 87; RESP 17; TEMP 98.3
[2023-09-19] MEDS: IBUPROFEN 600 MG TABLET PO PRN ×2 (13:17→23:19)
[2023-09-19 21:18] VITALS: RESP 18
[2023-09-19 23:19] VITALS: RESP 19
[2023-09-20 00:19] VITALS: RESP 18
[2023-09-20] MEDS: LORazepam 2 MG TABLET PO PRN (06:49)
[2023-09-20] MEDS: NICOTINE 21 MG/24 HOUR PATCH TD SCH (08:24)
[2023-09-20] MEDS: DIVALPROEX SODIUM 500 MG DR TABLET PO SCH (08:25)
[2023-09-20] MEDS: QUEtiapine FUMARATE 200 MG TABLET PO SCH (08:25)
[2023-09-20 09:39] VITALS: BP 118/73; PULSE 103; RESP 18; TEMP 98
== END 2023-09-20 10:34 | disposition home or self-care (01) | DRG 885 ==
LOC: EMS 18:41 → 3EC 23:47
PROVIDERS: ADMIT Psychiatry & Neurology Psychiatry; ATTEND Psychiatry & Neurology Psychiatry
DX: F25.0 Schizoaffective disorder, bipolar type (principal); R45.851 Suicidal ideations; I10 Essential (primary) hypertension; F41.9 Anxiety disorder, unspecified; K59.00 Constipation, unspecified; Z20.822 Contact with and (suspected) exposure to COVID-19; F12.90 Cannabis use, unspecified, uncomplicated; F84.0 Autistic disorder; F17.210 Nicotine dependence, cigarettes, uncomplicated; G47.00 Insomnia, unspecified; E78.5 Hyperlipidemia, unspecified; Z88.0 Allergy status to penicillin; Z91.041 Radiographic dye allergy status; Z79.899 Other long term (current) drug therapy
CPT/HCPCS: 93005; 99285; J1200; J1630; J2060; J3535

== ENCOUNTER 2024-10-14 18:08 | Emergency (ER) | payer MEDICARE, MEDICAID ==
[~2024-10-14] VITALS: Ht 172.7 cm; Wt 65.9 kg
[2024-10-14 18:49] VITALS: BP 130/86; PULSE 84; RESP 16; TEMP 98.6; O2SAT 98
== END 2024-10-14 21:39 | disposition left against medical advice (07) ==
LOC: EMS 18:08
DX: R52 Pain, unspecified (principal); Z53.21 Procedure and treatment not carried out due to patient leaving prior to being seen by health care provider

== ENCOUNTER 2024-10-14 23:06 | Inpatient (IN) | payer MEDICARE, MEDICAID ==
[~2024-10-14] VITALS: Ht 193 cm; Wt 82.0 kg
[2024-10-15] MEDS: ACETAMINOPHEN 500 MG TABLET PO ONE (06:40)
[2024-10-15] MEDS: DIVALPROEX SODIUM 500 MG ER TABLET PO ONE (06:41)
[2024-10-15] MEDS: QUEtiapine FUMARATE 100 MG TABLET PO ONE (06:41)
[2024-10-15] MEDS: LORazepam 1 MG TABLET PO ONE (06:41)
[2024-10-15 07:50] LABS: PH,URINE DRUG SCREEN 7.5 (5.0-8.0)
[2024-10-15 07:56] LABS: AMPHET/METH SCREEN,URINE NEGATIVE (NEGATIVE); BARBITURATE SCREEN, URINE NEGATIVE (NEGATIVE); BENZODIAZEPINES SCREEN,URINE NEGATIVE (NEGATIVE); CANNABINOID SCREEN,URINE NEGATIVE (NEGATIVE); COCAINE SCREEN,URINE NEGATIVE (NEGATIVE); METHADONE SCREEN, URINE NEGATIVE (NEGATIVE); OPIATE SCREEN,URINE NEGATIVE (NEGATIVE); PHENCYCLIDINE SCREEN,URINE NEGATIVE (NEGATIVE)
[2024-10-15] MEDS: BACITRACIN 28 GM OINTMENT TP ONE (08:03)
[2024-10-15 08:05] LABS: ALCOHOL, URINE DRUG SCREEN NEGATIVE (NEGATIVE)
[2024-10-15 10:36] LABS: COVID AG,FIA SOURCE NASAL SWAB
[2024-10-15 11:13] LABS: SARS-COV2 (COVID) ANTIGEN,FIA Negative (Negative)
[2024-10-15 17:11] VITALS: RESP 19
[2024-10-15] MEDS: NICOTINE 21 MG/24 HOUR PATCH TD SCH (19:04)
[2024-10-15 21:25] VITALS: RESP 18
[2024-10-15] MEDS: ZOLPIDEM TARTRATE 10 MG TABLET PO PRN (23:53)
[2024-10-15] MEDS: HALOPERIDOL 5 MG TABLET PO PRN (23:53)
[2024-10-15] MEDS: LORazepam 2 MG TABLET PO PRN (23:53)
[2024-10-16 10:32] VITALS: RESP 17; TEMP 98
[2024-10-16] MEDS: QUEtiapine FUMARATE 200 MG TABLET PO SCH (14:19)
[2024-10-16] MEDS: DIVALPROEX SODIUM 500 MG DR TABLET PO SCH (14:19)
[2024-10-16 14:42] VITALS: BP 135/88; PULSE 88; RESP 19; TEMP 98.5; O2SAT 99
[2024-10-16] MEDS: IBUPROFEN 600 MG TABLET PO PRN (14:42)
[2024-10-16 20:45] VITALS: RESP 18
[2024-10-17 10:15] VITALS: BP 117/73; PULSE 96; RESP 18; TEMP 97.1; O2SAT 96
[2024-10-17 13:35] VITALS: BP 111/78; PULSE 85; RESP 18; TEMP 97.8; O2SAT 97
[2024-10-17 14:31] VITALS: RESP 18
[2024-10-17 20:42] VITALS: RESP 18
[2024-10-18 02:37] VITALS: BP 121/75; RESP 19; TEMP 98
[2024-10-18 10:16] VITALS: RESP 18
[2024-10-18 22:00] VITALS: RESP 18; TEMP 98.2
[2024-10-19 09:30] VITALS: BP 118/71; PULSE 106; RESP 18; TEMP 97; O2SAT 97
[2024-10-19 21:00] VITALS: TEMP 98.1
[2024-10-20 11:01] VITALS: TEMP 97.3
[2024-10-20 20:23] VITALS: BP 119/68; PULSE 96; RESP 18; TEMP 98.8; O2SAT 96
[2024-10-20] MEDS: ACETAMINOPHEN 325 MG TABLET PO PRN (20:23)
[2024-10-20 21:23] VITALS: RESP 18
[2024-10-21 08:42] VITALS: RESP 18
[2024-10-21 20:28] VITALS: BP 107/59; PULSE 89; RESP 18; TEMP 97.9; O2SAT 97
[2024-10-21] MEDS: QUEtiapine FUMARATE 300 MG TABLET PO SCH (20:28)
[2024-10-21 21:28] VITALS: RESP 18
[2024-10-22 09:42] VITALS: RESP 18
[2024-10-22] MEDS ORDERED: DiphenhydrAMINE HCL 50 MG/ML VIAL ONE (21:27)
[2024-10-22] MEDS ORDERED: HALOPERIDOL LACTATE 5 MG/ML VIAL ONE (21:27)
[2024-10-22] MEDS ORDERED: LORazepam 2 MG/ML VIAL ONE (21:27)
[2024-10-22 21:44] VITALS: BP 110/70; PULSE 80; RESP 18; TEMP 97.5
[2024-10-22] MEDS: LORazepam 2 MG/ML VIAL IM ONE (21:44)
[2024-10-22] MEDS: HALOPERIDOL LACTATE 5 MG/ML VIAL IM ONE (21:46)
[2024-10-22] MEDS: DiphenhydrAMINE HCL 50 MG/ML VIAL IM ONE (21:46)
[2024-10-23 08:42] VITALS: RESP 18
[2024-10-23 21:00] VITALS: RESP 18
[2024-10-24 08:20] VITALS: BP 114/74; PULSE 80; RESP 16; O2SAT 97
[2024-10-24 22:03] VITALS: TEMP 98.5
[2024-10-25 08:00] VITALS: BP 107/73; PULSE 55; RESP 17; TEMP 98.5; O2SAT 98
[2024-10-25 11:10] VITALS: BP 111/71; PULSE 60; RESP 17; TEMP 98.6
[2024-10-25 12:10] VITALS: BP 101/69; PULSE 62; RESP 18; TEMP 98.1; O2SAT 99
[2024-10-25 20:49] VITALS: RESP 18; TEMP 98.2
[2024-10-26 00:28] VITALS: BP 121/73; PULSE 68; RESP 19; TEMP 98; O2SAT 97
[2024-10-26 08:24] VITALS: BP 117/96; PULSE 100; RESP 18; TEMP 97.8; O2SAT 98
[2024-10-26 09:24] VITALS: BP 116/98; PULSE 97; RESP 17; TEMP 97.8; O2SAT 96
[2024-10-26 20:30] VITALS: BP 105/70; PULSE 99; RESP 18; TEMP 97.7; O2SAT 97
[2024-10-27 08:45] VITALS: BP 123/74; PULSE 90; RESP 18; TEMP 97.6; O2SAT 97
[2024-10-27 10:08] VITALS: BP 123/74; PULSE 90; RESP 18; TEMP 97.6; O2SAT 97
[2024-10-27 20:00] VITALS: RESP 18
[2024-10-28 08:40] VITALS: BP 123/75; PULSE 96; RESP 18; TEMP 97.5; O2SAT 97
[2024-10-28 21:10] VITALS: BP 131/73; PULSE 94; RESP 20; TEMP 98.8; O2SAT 97
[2024-10-29 08:20] VITALS: BP 117/77; PULSE 104; RESP 18; TEMP 97.8; O2SAT 97
[2024-10-29 09:23] VITALS: RESP 18
[2024-10-29 13:26] VITALS: BP 117/77; PULSE 104; RESP 18; TEMP 97.8; O2SAT 97
[2024-10-29] MEDS ORDERED: DIVA-153 PO (14:45)
[2024-10-29] MEDS ORDERED: QUET300T2 PO (14:45)
== END 2024-10-29 15:20 | disposition home or self-care (01) | DRG 885 ==
LOC: EMS 23:10 → 3EI 10-15 17:05
PROVIDERS: ADMIT Psychiatry & Neurology Child & Adolescent Psychiatry; ATTEND Psychiatry & Neurology Child & Adolescent Psychiatry
PROC: GZHZZZZ Group Psychotherapy (ICD-10-PCS; principal; 2024-10-16)
PROC: GZ52ZZZ Individual Psychotherapy, Cognitive (ICD-10-PCS; 2024-10-16)
PROC: GZ56ZZZ Individual Psychotherapy, Supportive (ICD-10-PCS; 2024-10-16)
DX: F25.1 Schizoaffective disorder, depressive type (principal); Z88.0 Allergy status to penicillin; I10 Essential (primary) hypertension; F10.10 Alcohol abuse, uncomplicated; F19.10 Other psychoactive substance abuse, uncomplicated; F84.0 Autistic disorder; Z87.891 Personal history of nicotine dependence; T24.202A Burn of second degree of unspecified site of left lower limb, except ankle and foot, initial encounter; X08.8XXA Exposure to other specified smoke, fire and flames, initial encounter; Z20.822 Contact with and (suspected) exposure to COVID-19; Y93.89 Activity, other specified; Y92.89 Other specified places as the place of occurrence of the external cause; Y99.8 Other external cause status; Y90.9 Presence of alcohol in blood, level not specified
CPT/HCPCS: 80307; 99285; J1200; J1630; J2060

== ENCOUNTER → 2024-12-09 | Emergency (ER) | payer MEDICARE, OTHER ==
[~2024-12-09] VITALS: Ht 167.6 cm; Wt 77.3 kg
[~2024-12-09] MED LIST changes: -DIVA-112 PO; +DIVA-153 PO; -DIVA500T69 PO; -DSS100 PO; -OMEP20 PO; -QUET200T PO; -QUET200T30 PO; +QUET300T2 PO
[2024-12-09 17:49] VITALS: BP 150/84; PULSE 80; RESP 18; TEMP 98.4; O2SAT 98
== END | disposition left against medical advice (07) ==
LOC: EMS 17:35
DX: R53.1 Weakness (principal); Z53.21 Procedure and treatment not carried out due to patient leaving prior to being seen by health care provider